=== PATIENT | male | born 1965 | race African-American/Black ===

== ENCOUNTER 2023-12-18 16:08 | Emergency (ER) | payer BC ==
[~2023-12-18] VITALS: Ht 182.9 cm; Wt 110.7 kg
[2023-12-18] MEDS ORDERED: COZAAR25 MG PO (16:27)
[2023-12-18] MEDS ORDERED: LIPITOR20 MG PO (16:27)
[2023-12-18] MEDS ORDERED: OMEGA 3 1,0001 EACH PO (16:28)
[2023-12-18] MEDS ORDERED: ADULT LOW DOSE81 M1 PO (16:28)
[2023-12-18] MEDS ORDERED: TOPROL XL25 M1 PO (16:28)
[2023-12-18] MEDS ORDERED: OZEMPIC1 MG/0.71 SQ (16:29)
[2023-12-18] MEDS ORDERED: KETOROLAC TROMETHAMINE 30 MG VIAL IM STA (17:43)
[2023-12-18] MEDS ORDERED: KETOROLAC TROMETHAMINE 30 MG VIAL ONE (17:53)
[2023-12-18] MEDS ORDERED: DICLOFENAC POTA50 MG PO (19:01)
== END 2023-12-18 19:29 | disposition home or self-care (01) ==
LOC: ER 16:09
DX: M25.561 Pain in right knee (principal); M25.562 Pain in left knee; I10 Essential (primary) hypertension; E11.9 Type 2 diabetes mellitus without complications